=== PATIENT | female | born 1945 | race Caucasian/White ===

== ENCOUNTER 2021-07-01 12:43 | Emergency (ER) | payer MEDICARE, OTHER ==
[~2021-07-01] VITALS: Ht 160 cm; Wt 63.5 kg
--- NOTE | 2021-07-01 12:57 | NUR ---
To ER bed 8, nausea and vomiting, diarrhea, abdominal cramping since 429, aaox3, breathing even and non labored, connected to monitor, saline lock established and blood drawn
[2021-07-01 13:55] LABS: BASOPHILS % (AUTO) 0.1 % (0.0-2.0); HEMATOCRIT 44 % (33-45); HEMOGLOBIN 14.8 g/dL (11.5-14.8); LYMPHOCYTES # (AUTO) 0.1 K/uL (0.8-4.8); LYMPHOCYTES % (AUTO) 1.6 % (20.0-44.0); MEAN CORPUSCULAR HGB CONC 34 g/dl (31.0-36.0); MEAN CORPUSCULAR VOLUME 95 fL (82-100); MONOCYTES # (AUTO) 0.1 K/uL (0.1-1.30); MONOCYTES % (AUTO) 1.4 % (2.0-12.0); NEUTROPHILS # (AUTO) 8.5 K/uL (1.8-8.9); NEUTROPHILS % (AUTO) 96.9 % (43.0-81.0); PLATELET COUNT (AUTO) 292 K/uL (150-450); RED BLOOD CELL COUNT(AUTO) 4.62 MIL/uL (4.0-5.2); WHITE BLOOD COUNT (AUTO) 8.8 K/uL (4.3-11.0)
[2021-07-01 14:23] LABS: ALBUMIN 3.9 g/dL (3.4-5.0); BILIRUBIN,DIRECT 0.1 mg/dL (0.0-0.2); BILIRUBIN,TOTAL 0.4 mg/dL (0.2-1.0); CALCIUM, SERUM 9.3 mg/dL (8.5-10.1); CREATININE 0.7 mg/dL (0.6-1.3); POTASSIUM 3.6 mmol/L (3.5-5.1); TOTAL PROTEIN, SERUM 7.8 g/dL (6.4-8.2)
[2021-07-01] MEDS ORDERED: IV NS 0.9% 1,000 ML BAG IV ONE (14:30)
[2021-07-01] MEDS ORDERED: ACETAMINOPHEN ES 500 MG TABLET PO ONE (14:30)
[2021-07-01] MEDS ORDERED: ACETAMINOPHEN ES 500 MG TABLET ONE (14:57)
[2021-07-01] MEDS ORDERED: ONDANSETRON HCL/PF 4 MG/2 ML VIAL ONE (15:06)
[2021-07-01] MEDS ORDERED: ONDA4TAB11 PO (15:17)
[2021-07-01] MEDS ORDERED: ONDANSETRON HCL/PF 4 MG/2 ML VIAL IVP ONE (15:30)
--- NOTE | 2021-07-01 15:30 | NUR ---
THE PATIENT UNABLE TO PROVIDE URINE. DR PRITCHARD MADE AWARE. PER MD NO NEED FOR URINE.
--- NOTE | 2021-07-01 16:01 | NUR ---
The patient is alert and oriented x4. Denies pain. In room air and denies SOB. Respiration regular and unlabored. Denies N/V. IV removed. Catheter intact and site benign. Pressure and 4x4 applied to site. No bleeding noted.Patient discharged to home in stable condition. Written and verbal after care instructions given. Patient verbalizes understanding of instruction.
[2021-07-01 16:04] VITALS: BP 126/75
== END 2021-07-01 16:04 | disposition home or self-care (01) ==
LOC: ER 12:43
DX: A08.4 Viral intestinal infection, unspecified (principal); E78.00 Pure hypercholesterolemia, unspecified; Z98.890 Other specified postprocedural states; Z88.2 Allergy status to sulfonamides; Z88.8 Allergy status to other drugs, medicaments and biological substances; Z88.1 Allergy status to other antibiotic agents
CPT/HCPCS: 36415; 80048; 80076; 83690; 85025; 96361; 96374; 99283; J2405; J7030

== ENCOUNTER 2022-01-08 23:36 | Emergency (ER) | payer MEDICARE, BC ==
[~2022-01-08] VITALS: Ht 160 cm; Wt 62.1 kg
[~2022-01-08 23:36] MED LIST: ONDA4TAB11 PO
[2022-01-08 23:59] VITALS: BP 130/68
--- NOTE | 2022-01-09 00:15 | NUR ---
Patient discharged to home in stable condition. Written and verbal after care instructions given. Patient verbalizes understanding of instruction. Pt ambulatory with a steady gait
== END 2022-01-09 00:15 | disposition home or self-care (01) ==
LOC: ER 23:55
DX: R05.9 Cough, unspecified (principal); Z85.118 Personal history of other malignant neoplasm of bronchus and lung; Z90.710 Acquired absence of both cervix and uterus; Z88.2 Allergy status to sulfonamides; Z88.8 Allergy status to other drugs, medicaments and biological substances; Z79.899 Other long term (current) drug therapy